=== PATIENT | female | born 1975 | race Two or more races ===

== ENCOUNTER → 2024-08-03 | Outpatient (CLI) | payer MEDICAID, SELFPAY ==
--- NOTE | 2024-08-03 17:00 | XR_ITS ---
Examination: Thyroid sonography complete TECHNIQUE: Multiple high-resolution grayscale sonographic images thyroid lobes are carful analysis Exam date and time: August 03, 2024 1706 hours INDICATIONS: Dry throat and throat pain noticed beginning 2 months ago. FINDINGS: Right thyroid 4.2 x 1.5 x 1.6 cm No thyroid nodules Left thyroid 4.8 x 1.3 x 1.5 cm Midpole nodule 3 x 4 x 3 mm Lower pole vascular nodule 12 x 8 x 9 mm IMPRESSION: Left thyroid nodules as above Consider ultrasound-guided fine-needle aspiration of the vascular lower pole left thyroid nodule 12 x 8 x 9 mm
== END | disposition home or self-care (01) ==
PROVIDERS: PCP Internal Medicine; Referring Provider Internal Medicine; Visit Provider Internal Medicine
DX: E04.2 Nontoxic multinodular goiter (principal)
CPT/HCPCS: 76536